=== PATIENT | female | born 2005 | race Two or more races ===

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

== ENCOUNTER 2024-02-15 19:14 | Emergency (ER) | payer OTHER ==
[~2024-02-15] VITALS: Ht 165.1 cm; Wt 54.4 kg
[2024-02-15] MEDS ORDERED: WIXELA 100-501 EACH IH (19:57)
[2024-02-15] MEDS ORDERED: PROAIR RESPICL90 MCG IH (19:57)
[2024-02-15 20:56] LABS: HEMOGLOBIN 12.3 g/dL (12.0-15.00); MEAN CELL VOLUME 79.9 fL (80.00-100.00); MEAN CORPUSCULAR HEMOGLOBIN 26.6 pg (27.00-32.0); MEAN CORPUSCULAR HGB CONC 33.4 g/dl (32.0-36.0); PLATELET COUNT 182 K/uL (150-450); RED BLOOD COUNT 4.63 M/uL (4.00-6.00); RED CELL DISTRIBUTION WIDTH 15.5 % (11.5-14.5)
== END 2024-02-15 22:35 | disposition home or self-care (01) ==
LOC: EMR PED 19:17 → ER 19:17 → EMR PED 21:06
PROVIDERS: Emergency Medicine Pediatric Emergency Medicine
DX: B34.9 Viral infection, unspecified (principal); R53.81 Other malaise; Z20.822 Contact with and (suspected) exposure to COVID-19

== ENCOUNTER 2024-07-12 14:17 | Emergency (ER) | payer OTHER ==
[~2024-07-12] VITALS: Ht 165.1 cm; Wt 54.4 kg
[~2024-07-12 14:17] MED LIST changes: +PROAIR RESPICL90 MCG IH; +WIXELA 100-501 EACH IH
[2024-07-12] MEDS ORDERED: ZITHROMAX200 MG (14:55)
[2024-07-12] MEDS ORDERED: KETOROLAC TROMETHAMINE 30 MG VIAL IM STA (16:35)
[2024-07-12 16:45] LABS: BASO % 1.1 % (0.1-1.2); EOS # 0.01 (0.04-0.54); EOS % 0.1 % (0.7-7.0); HEMOGLOBIN 12.8 g/dL (11.2-15.7); LYMPH # 7.63 (1.18-3.74); LYMPH % 67.3 % (19.3-53.1); MEAN CORPUSCULAR HEMOGLOBIN 25.8 pg (25.6-32.2); MONO # 0.85 (0.24-0.82); MONO % 7.5 % (4.7-12.5); NEUT % 23.8 % (34.0-71.1); PLATELET COUNT 208 K/uL (163-369); RED BLOOD COUNT 4.97 M/uL (3.93-5.22); RED CELL DISTRIBUTION WIDTH 13.4 % (11.6-14.4)
== END 2024-07-12 18:48 | disposition home or self-care (01) ==
LOC: ER 14:19 → EMR PED 14:19
DX: B27.90 Infectious mononucleosis, unspecified without complication (principal)